=== PATIENT | male | born 1980 | race Caucasian/White ===

== ENCOUNTER 2016-09-18 01:05 | Emergency (ER) | payer OTHER ==
--- NOTE | 2016-09-18 04:48 | ED ---
Overdose HPI - General Chief Complaint: Overdose Stated Complaint: overdose Time Seen by Provider: 09/18/16 01:17 Source: EMS Mode of arrival: EMS Limitations: no limitations - Related Data Home Medications Medication Instructions Recorded Confirmed Venlafaxine HCl [Effexor XR] 75 mg PO DAILY 01/23/14 08/08/14 Previous Rx's Medication Instructions Recorded Ibuprofen [Motrin] 800 mg PO Q8HR PRN #30 tab 01/23/14 Penicillin V Potassium [Pen Vee K] 500 mg PO TID #40 tab 08/08/14 traMADol HCl [Ultram] 50 mg PO Q4H PRN #20 tab 08/08/14 Ibuprofen [Motrin] 800 mg PO Q8HR PRN #20 tab 05/04/15 Penicillin V Potassium [Pen Vee K] 500 mg PO QID #28 tab 05/04/15 Allergies Allergy/AdvReac Type Severity Reaction Status Date / Time codeine AdvReac Nausea Verified 09/18/16 01:14 doxycycline AdvReac Nausea & Verified 09/18/16 01:14 Vomiting Review of Systems ROS Statement: Those systems with pertinent positive or pertinent negative responses have been documented in the HPI. ROS Other: All systems not noted in ROS Statement are negative. Past Medical History Past Medical History: No Reported History History of Any Multi-Drug Resistant Organisms: None Reported Past Surgical History: No Surgical Hx Reported Past Psychological History: Anxiety Smoking Status: Current every day smoker Past Alcohol Use History: None Reported Past Drug Use History: Cocaine, Heroin General Exam Limitations: no limitations Course Vital Signs 09/18/16 09/18/16 01:09 03:16 Temperature 99.3 F 96.9 F L Pulse Rate 100 80 Respiratory 18 16 Rate Blood Pressure 132/81 109/68 O2 Sat by Pulse 94 L 96 Oximetry Disposition Clinical Impression: Poisoning by opiate or related narcotic Disposition: HOME SELF-CARE Condition: Fair Instructions: Opioid Overdose (ED) Referrals: None,Stated [Primary Care Provider] - 1-2 days
[2016-09-18 04:52] VITALS: BP 104/66; PULSE 79; RESP 18; TEMP 97.9
== END 2016-09-18 05:04 | disposition home or self-care (01) ==
LOC: EC 01:05
DX: T40.691A Poisoning by other narcotics, accidental (unintentional), initial encounter (principal); F41.9 Anxiety disorder, unspecified; F17.200 Nicotine dependence, unspecified, uncomplicated; Z88.1 Allergy status to other antibiotic agents; Z88.5 Allergy status to narcotic agent; Z79.899 Other long term (current) drug therapy
CPT/HCPCS: 99284

== ENCOUNTER 2021-09-17 18:12 | Emergency (ER) | payer OTHER ==
[2021-09-17 19:28] VITALS: RESP 22; TEMP 99.6
[2021-09-17] MEDS ORDERED: SULFAMETHOX-TMP 800-160MG 1 EACH TAB PO STA (19:52)
[2021-09-17] MEDS ORDERED: CEPHALEXIN 500 MG CAP PO STA (19:52)
--- NOTE | 2021-09-17 19:57 | ED ---
General Adult HPI - General Chief complaint: Skin/Abscess/Foreign Body Stated complaint: right foot infection Time Seen by Provider: 09/17/21 19:46 Source: patient, RN notes reviewed, old records reviewed Mode of arrival: ambulatory Limitations: no limitations - History of Present Illness Initial comments: 41-year-old male presents with pain and swelling in the medial aspect of his right foot. Patient admits to using IV fentanyl about one week ago and states that the infection began shortly after that. He denies fever. He states he's had multiple cutaneous infections in the past. He is currently in a methadone maintenance program and is abstaining from IV drug use. - Related Data Previous Rx's Medication Instructions Recorded Albuterol Sulfate [Proair Hfa] 1 - 2 puff INHALATION Q6HR PRN #1 01/01/17 inhaler Azithromycin [Zithromax Z-pack (6 0 mg PO DIRECTED #6 tab 01/01/17 tabs)] Cephalexin [Keflex] 500 mg PO QID 10 Days #40 cap 09/17/21 Sulfamethox-Tmp 800-160Mg [Bactrim 1 tab PO Q12HR #28 tab 09/17/21 DS 800-160 mg] Allergies Allergy/AdvReac Type Severity Reaction Status Date / Time codeine AdvReac Nausea Verified 09/17/21 19:28 doxycycline AdvReac Nausea & Verified 09/17/21 19:28 Vomiting Review of Systems ROS Statement: Those systems with pertinent positive or pertinent negative responses have been documented in the HPI. ROS Other: All systems not noted in ROS Statement are negative. Past Medical History Past Medical History: No Reported History Additional Past Medical History / Comment(s): Hep C, addiction History of Any Multi-Drug Resistant Organisms: None Reported Past Surgical History: No Surgical Hx Reported Past Psychological History: Anxiety, Depression Smoking Status: Current every day smoker Past Alcohol Use History: None Reported Past Drug Use History: Cocaine, Heroin General Exam Limitations: no limitations General appearance: alert, in no apparent distress Head exam: Present: atraumatic, normocephalic Eye exam: Present: normal appearance, PERRL ENT exam: Present: normal exam Neck exam: Present: normal inspection. Absent: tenderness, meningismus Respiratory exam: Absent: respiratory distress Cardiovascular Exam: Present: regular rate, normal rhythm GI/Abdominal exam: Absent: distended Extremities exam: Present: other (Right medial foot, there is a central fluctuant region with surrounding cellulitis which is the entire medial aspect of the foot and the distal ankle.) Course Vital Signs 09/17/21 19:24 Temperature 99.6 F Pulse Rate 85 Respiratory 22 Rate Blood Pressure 125/83 O2 Sat by Pulse 100 Oximetry Procedures - Incision & Drainage Consent Obtained: verbal consent Indication: Abscess Site: lower extremity I&D Cleaning Method: Chloroprep Sterile Field Used?: No Scalpel Used: #11 Needle Aspiration Performed?: No Irrigation Performed?: No I&D Drainage Obtained: Serous Culture Obtained?: No Patient Tolerated Procedure: well Medical Decision Making - Medical Decision Making 41-year-old male with abscess and cellulitis to the right medial foot. Patient otherwise well-appearing. He is currently undergoing treatment for opiate use. There was a small abscess with fluctuance center. I was able to drain this with an 11 blade scalpel. Only serous fluid came out, no purulence. The patient is started on Keflex and Bactrim in the emergency department. He should monitor his symptoms and follow with his primary care physician. Disposition Clinical Impression: Cellulitis, Abscess Disposition: HOME SELF-CARE Condition: Fair Instructions (If sedation given, give patient instructions): Abscess (ED), Cellulitis (ED) Prescriptions: Sulfamethox-Tmp 800-160Mg [Bactrim DS 800-160 mg] 1 tab PO Q12HR #28 tab Cephalexin [Keflex] 500 mg PO QID 10 Days #40 cap Is patient prescribed a controlled substance at d/c from ED?: No Referrals: None,Stated [Primary Care Provider] - 1-2 days Zack Randall MD [STAFF PHYSICIAN] - 1-2 days Time of Disposition: 19:55
[2021-09-17 20:07] VITALS: BP 129/90; PULSE 80
== END 2021-09-17 20:07 | disposition home or self-care (01) ==
LOC: EC 18:12
DX: L03.115 Cellulitis of right lower limb (principal); L02.91 Cutaneous abscess, unspecified; F17.200 Nicotine dependence, unspecified, uncomplicated; Z88.5 Allergy status to narcotic agent; Z88.1 Allergy status to other antibiotic agents
CPT/HCPCS: 10060; 99283

== ENCOUNTER 2024-02-01 15:05 | Observation (INO) | payer OTHER ==
--- NOTE | 2024-02-01 15:59 | ED ---
General Adult HPI - General Source: patient, RN notes reviewed Mode of arrival: ambulatory Limitations: no limitations <Jaime Abel - Last Filed: 02/01/24 16:59> - General Source: patient, RN notes reviewed, old records reviewed Mode of arrival: ambulatory Limitations: no limitations - History of Present Illness -: days(s) Consistency: constant Improves with: none Worsens with: none Associated Symptoms: loss of appetite, nausea/vomiting, weakness Treatments Prior to Arrival: none <Krishna Dominguez - Last Filed: 02/08/24 17:36> - General Stated complaint: Fever Time Seen by Provider: 02/01/24 15:25 - History of Present Illness Initial comments: 43-year-old male presents emergency department with chief complaint of leg infections patient states he has been having bodyaches, fevers chills and night sweats. Patient states he has sores and redness and swelling in his left upper leg by his knee. Patient does admit that he has hepatitis C. States that he started injecting throughout his legs secondary to losing access of injection sites. Patient states he uses fentanyl. Patient denies any abdominal pain denies back pain denies chest pain shortness of breath (Jaime Abel) This is a 43-year-old male with concern for infectious etiology with history of hepatitis C and recent drug abuse (Krishna Dominguez) - Related Data Previous Rx's Medication Instructions Recorded Sulfamethoxazole/Trimethoprim 2 each PO BID #28 tablet 02/03/24 [Bactrim DS 800-160 mg] Allergies Allergy/AdvReac Type Severity Reaction Status Date / Time codeine AdvReac Nausea Verified 02/02/24 05:28 doxycycline AdvReac Nausea & Verified 02/02/24 05:28 Vomiting Review of Systems ROS Other: All systems not noted in ROS Statement are negative. <Jaime Abel - Last Filed: 02/01/24 16:59> ROS Other: All systems not noted in ROS Statement are negative. <Krishna Dominguez - Last Filed: 02/08/24 17:36> ROS Statement: Those systems with pertinent positive or pertinent negative responses have been documented in the HPI. Past Medical History Past Medical History: No Reported History Additional Past Medical History / Comment(s): Hep C, addiction History of Any Multi-Drug Resistant Organisms: None Reported Past Surgical History: No Surgical Hx Reported Past Psychological History: Anxiety, Depression Smoking Status: Current every day smoker Past Alcohol Use History: None Reported Past Drug Use History: Cocaine, Heroin, IV Drug Use, Opiates <Jaime Abel - Last Filed: 02/01/24 16:59> General Exam Limitations: no limitations General appearance: alert, in no apparent distress Head exam: Present: atraumatic, normocephalic, normal inspection Eye exam: Present: normal appearance, PERRL, EOMI. Absent: scleral icterus, conjunctival injection, periorbital swelling Respiratory exam: Present: normal lung sounds bilaterally. Absent: respiratory distress, wheezes, rales, rhonchi, stridor Cardiovascular Exam: Present: regular rate, normal rhythm, normal heart sounds. Absent: systolic murmur, diastolic murmur, rubs, gallop, clicks Extremities exam: Present: other (Bilateral legs multiple raised erythematous firm nodular areas with central puncture wound noted) Skin exam: Present: warm, dry, intact, normal color. Absent: rash <PageJaime Moore - Last Filed: 02/01/24 16:59> General appearance: alert, in no apparent distress Head exam: Present: atraumatic, normocephalic, normal inspection Eye exam: Present: normal appearance, PERRL, EOMI. Absent: scleral icterus, conjunctival injection, periorbital swelling ENT exam: Present: normal exam, mucous membranes moist Neck exam: Present: normal inspection. Absent: tenderness, meningismus, lymphadenopathy Respiratory exam: Present: normal lung sounds bilaterally. Absent: respiratory distress, wheezes, rales, rhonchi, stridor Cardiovascular Exam: Present: regular rate, normal rhythm, normal heart sounds. Absent: systolic murmur, diastolic murmur, rubs, gallop, clicks GI/Abdominal exam: Present: soft, normal bowel sounds. Absent: distended, tenderness, guarding, rebound, rigid Extremities exam: Present: normal inspection, full ROM, normal capillary refill. Absent: tenderness, pedal edema, joint swelling, calf tenderness Back exam: Present: normal inspection Neurological exam: Present: alert, oriented X3, CN II-XII intact Psychiatric exam: Present: normal affect, normal mood Skin exam: Present: warm, dry, intact, normal color. Absent: rash <Krishna Dominguez - Last Filed: 02/08/24 17:36> Course <Krishna Dominguez - Last Filed: 02/08/24 17:36> Vital Signs 02/01/24 02/01/24 02/01/24 15:54 18:14 20:00 Temperature 98.1 F 98.9 F Pulse Rate 105 H 83 75 Respiratory 20 18 16 Rate Blood Pressure 138/88 148/81 173/86 O2 Sat by Pulse 97 100 99 Oximetry 02/01/24 02/02/24 02/02/24 22:00 01:05 06:00 Temperature Pulse Rate 88 88 88 Respiratory 16 16 16 Rate Blood Pressure 130/89 130/79 130/65 O2 Sat by Pulse 100 97 96 Oximetry 02/02/24 02/02/24 02/02/24 08:00 10:00 11:00 Temperature Pulse Rate 78 86 74 Respiratory 16 20 20 Rate Blood Pressure 130/65 120/68 118/96 O2 Sat by Pulse 98 98 98 Oximetry 02/02/24 02/02/24 02/02/24 14:00 15:00 16:00 Temperature Pulse Rate 79 85 78 Respiratory 20 16 20 Rate Blood Pressure 117/67 140/60 140/79 O2 Sat by Pulse 98 98 98 Oximetry 02/02/24 02/02/24 18:00 18:28 Temperature Pulse Rate 75 75 Respiratory 20 16 Rate Blood Pressure 146/90 116/80 O2 Sat by Pulse 97 98 Oximetry - Reevaluation(s) Reevaluation #1: 02/01/24 18:08 Medical records reviewed (Krishna Dominguez) Reevaluation #2: 02/01/24 18:08 Patient symptoms improved (Krishna Dominguez) Reevaluation #3: 02/01/24 18:09 Patient informed of results and questions answered (Krishna Dominguez) Reevaluation #4: 02/01/24 18:09 Was pt. sent in by a medical professional or institution (, PA, [employer]P [employer], urgent care, hospital, or correction...) When possible be specific @ -no Did you speak to anyone other than the patient for history (EMS, parent, family, police, friend...)? What history was obtained from this source @ -no Did you review nursing and triage notes (agree or disagree)? Why? @ -agree Are old charts reviewed (outside hosp., previous admission, EMS record, old EKG, old radiological studies, urgent care reports/EKG's, correction records)? Report findings @ -yes Differential Diagnosis (chest pain, altered mental status, abdominal pain women, abdominal pain men, vaginal bleeding, weakness, fever, dyspnea, syncope, headache, dizziness, GI bleed, back pain, seizure, CVA, palpatations, mental health, musculoskeletal)? @ -prior EKG interpreted by me (3pts min.). @ -yes X-rays interpreted by me (1pt min.). @ -yes negative for acute disease CT interpreted by me (1pt min.). @ -no U/S interpreted by me (1pt. min.). @ -no What testing was considered but not performed or refused? (CT, X-rays, U/S, labs)? Why? @ -none What meds were considered but not given or refused? Why? @ -none Did you discuss the management of the patient with other professionals (professionals i.e. , PA, [employer], lab, RT, psych nurse, social media sr strategy manager, manager of investigations, teacher, commanding officer motorized squad, case supervisor)? Give summary @ -no Was smoking cessation discussed for >3mins.? @ -no Was critical care preformed (if so, how long)? @ -no Were there social determinants of health that impacted care today? How? (Homelessness, low income, unemployed, alcoholism, drug addiction, transportation, low edu. Level, literacy, decrease access to med. care, detention, rehab)? @ -none Was there de-escalation of care discussed even if they declined (Discuss DNR or withdrawal of care, Hospice)? DNR status @ -no What co-morbidities impacted this encounter? (DM, HTN, Smoking, COPD, CAD, Cancer, CVA, ARF, Chemo, Hep., AIDS, mental health diagnosis, sleep apnea, morbid obesity)? @ -none Was patient admitted / discharged? Hospital course, mention meds given and route, prescriptions, significant lab abnormalities, going to OR and other pertinent info. @ - 43 male to be admitted for rule out bacterial cause of fever bacterial endocarditis bacteremia Admitted Undiagnosed new problem with uncertain prognosis? @ -no Drug Therapy requiring intensive monitoring for toxicity (Heparin, Nitro, Insulin, Cardizem)? @ -no Were any procedures done? @ -no Diagnosis/symptom? @ -Chest pain history of IVDA Acute, or Chronic, or Acute on Chronic? @ -Acute Uncomplicated (without systemic symptoms) or Complicated (systemic symptoms)? @ -Complicated Side effects of treatment? @ -no Exacerbation, Progression, or Severe Exacerbation? @ -exacerbation Poses a threat to life or bodily function? How? (Chest pain, USA, VT, pneumonia, PE, COPD, DKA, ARF, appy, cholecystitis, CVA, Diverticulitis, Homicidal, Suicidal, threat to staff... and all critical care pts) @ -yes chest pain history of IVDA (Krishna Dominguez) Reevaluation #5: Differential Fever: Pneumonia, viral URI, endocarditis, myocarditis, pericarditis, otitis, sinusitis, peritonsillar Abscess, retropharyngeal Abscess, epiglottitis, peritonitis, appendicitis, Fina cystitis, diverticulitis, hepatitis, colitis, UTI, PID, TOA, pyelonephritis, prostatitis, epididymitis, meningitis, encephalitis, pulmonary embolism, CVA, thyroid storm, pancreatitis, adrenal crisis, cavernous sinus thrombosis, this is not meant to be an all-inclusive list. (Krishna Dominguez) - Consultations Consultation #1: Spoke with [facility] who agrees to admit this patient (Krishna Dominguez) EKG Findings - EKG Comments: EKG Findings:: EKG performed at 1649 sinus rhythm with sinus arrhythmia rate of 84 IN 150 QRS 105 QT/QTc 354/395 - EKG Results: EKG: interpreted by GORDON <Jaime Abel - Last Filed: 02/01/24 16:59> - EKG Results: EKG: interpreted by GORDON <Krishna Dominguez - Last Filed: 02/08/24 17:36> Medical Decision Making - Lab Data Result diagrams: 02/01/24 16:51 <Jaime Abel - Last Filed: 02/01/24 16:59> - Lab Data Result diagrams: 02/03/24 04:19 02/03/24 10:08 - EKG Data -: EKG Interpreted by Ak - Radiology Data Radiology results: report reviewed (Chest x-ray negative for acute disease), image reviewed <Krishna Dominguez - Last Filed: 02/08/24 17:36> - Medical Decision Making 43 male to be admitted for rule out bacterial cause of fever bacterial endocarditis bacteremia (Krishna Dominguez) - Lab Data Lab Results 02/01/24 02/01/24 02/01/24 Range/Units 16:51 16:51 16:51 WBC 15.2 H (3.8-10.6) k/uL RBC 5.07 (4.30-5.90) m/uL Hgb 15.2 (13.0-17.5) gm/dL Hct 45.1 (39.0-53.0) % MCV 88.9 (80.0-100.0) fL MCH 29.9 (25.0-35.0) pg MCHC 33.6 (31.0-37.0) g/dL RDW 13.4 (11.5-15.5) % Plt Count 346 (150-450) k/uL MPV 6.9 Neutrophils % 76 % Lymphocytes % 15 % Monocytes % 5 % Eosinophils % 1 % Basophils % 1 % Neutrophils # 11.5 H (1.3-7.7) k/uL Lymphocytes # 2.3 (1.0-4.8) k/uL Monocytes # 0.8 (0-1.0) k/uL Eosinophils # 0.2 (0-0.7) k/uL Basophils # 0.1 (0-0.2) k/uL ESR 46 H (0-15) mm/Hr Sodium 141 (137-145) mmol/L Potassium 3.0 L (3.5-5.1) mmol/L Chloride 105 (98-107) mmol/L Carbon Dioxide 28 (22-30) mmol/L Anion Gap 8 mmol/L BUN 8 L (9-20) mg/dL Creatinine 0.79 (0.66-1.25) mg/dL Est GFR (CKD-EPI)AfAm >90 (>60 ml/min/1.73 sqM) Est GFR (CKD-EPI)NonAf >90 (>60 ml/min/1.73 sqM) Glucose 145 H (74-99) mg/dL Plasma Lactic Acid Molina 1.8 (0.7-2.0) mmol/L Calcium 9.5 (8.4-10.2) mg/dL Phosphorus (2.5-4.5) mg/dL Magnesium (1.6-2.3) mg/dL Total Bilirubin 0.6 (0.2-1.3) mg/dL AST 48 (17-59) U/L ALT 71 H (4-49) U/L Alkaline Phosphatase 132 H (38-126) U/L Troponin I (0.000-0.034) ng/mL C-Reactive Protein 13.7 H (<1.0) mg/dL Total Protein 8.8 H (6.3-8.2) g/dL Albumin 4.6 (3.5-5.0) g/dL 02/01/24 02/01/24 Range/Units 16:51 16:51 WBC (3.8-10.6) k/uL RBC (4.30-5.90) m/uL Hgb (13.0-17.5) gm/dL Hct (39.0-53.0) % MCV (80.0-100.0) fL MCH (25.0-35.0) pg MCHC (31.0-37.0) g/dL RDW (11.5-15.5) % Plt Count (150-450) k/uL MPV Neutrophils % % Lymphocytes % % Monocytes % % Eosinophils % % Basophils % % Neutrophils # (1.3-7.7) k/uL Lymphocytes # (1.0-4.8) k/uL Monocytes # (0-1.0) k/uL Eosinophils # (0-0.7) k/uL Basophils # (0-0.2) k/uL ESR (0-15) mm/Hr Sodium (137-145) mmol/L Potassium (3.5-5.1) mmol/L Chloride (98-107) mmol/L Carbon Dioxide (22-30) mmol/L Anion Gap mmol/L BUN (9-20) mg/dL Creatinine (0.66-1.25) mg/dL Est GFR (CKD-EPI)AfAm (>60 ml/min/1.73 sqM) Est GFR (CKD-EPI)NonAf (>60 ml/min/1.73 sqM) Glucose (74-99) mg/dL Plasma Lactic Acid Molina (0.7-2.0) mmol/L Calcium (8.4-10.2) mg/dL Phosphorus 3.6 (2.5-4.5) mg/dL Magnesium 2.0 (1.6-2.3) mg/dL Total Bilirubin (0.2-1.3) mg/dL AST (17-59) U/L ALT (4-49) U/L Alkaline Phosphatase (38-126) U/L Troponin I <0.012 (0.000-0.034) ng/mL C-Reactive Protein (<1.0) mg/dL Total Protein (6.3-8.2) g/dL Albumin (3.5-5.0) g/dL Disposition <Jaime Abel - Last Filed: 02/01/24 16:59> Is patient prescribed a controlled substance at d/c from ED?: No Time of Disposition: 18:00 <Krishna Dominguez - Last Filed: 02/08/24 17:36> Clinical Impression: Fever, Leukocytosis, IV drug abuse Disposition: ADMITTED IP TO THIS HOSP Condition: Undetermined
[2024-02-01 16:58] LABS: Basophils # (A) 0.1 k/uL (0-0.2); Basophils % (A) 1 %; Eosinophils # (A) 0.2 k/uL (0-0.7); Eosinophils % (A) 1 %; HCT 45.1 % (39.0-53.0); HGB 15.2 gm/dL (13.0-17.5); Lymphocytes # (A) 2.3 k/uL (1.0-4.8); Lymphocytes % (A) 15 %; MCH 29.9 pg (25.0-35.0); MCHC 33.6 g/dL (31.0-37.0); MCV 88.9 fL (80.0-100.0); Mean Platelet Volume 6.9; Monocytes # (A) 0.8 k/uL (0-1.0); Monocytes % (A) 5 %; Neutrophils # (A) 11.5 k/uL (1.3-7.7); Neutrophils % (A) 76 %; Platelet Count 346 k/uL (150-450); RBC 5.07 m/uL (4.30-5.90); RDW 13.4 % (11.5-15.5); WBC 15.2 k/uL (3.8-10.6)
[2024-02-01 17:09] LABS: ALT 71 U/L (4-49); AST 48 U/L (17-59); African American GFR (CKD) >90 (>60 ml/min/1.73 sqM); Albumin 4.6 g/dL (3.5-5.0); Alkaline Phosphatase 132 U/L (38-126); Anion Gap 8 mmol/L; Blood Urea Nitrogen 8 mg/dL (9-20); Calcium 9.5 mg/dL (8.4-10.2); Carbon Dioxide 28 mmol/L (22-30); Chloride 105 mmol/L (98-107); Glucose 145 mg/dL (74-99); Non-African American GFR(CKD) >90 (>60 ml/min/1.73 sqM); Sodium 141 mmol/L (137-145); Total Bilirubin 0.6 mg/dL (0.2-1.3); Total Protein 8.8 g/dL (6.3-8.2)
[2024-02-01 17:24] LABS: C Reactive Protein 13.7 mg/dL (<1.0)
[2024-02-01] MEDS ORDERED: VANCOMYCIN IV PER PHARMACY 1 EACH MISC MISCELLANE PRN (17:53)
[2024-02-01] MEDS ORDERED: NALOXONE 0.4 MG/ML 1 ML VIAL IV PRN (18:06)
[2024-02-01] MEDS: PANTOPRAZOLE 40 MG/10 ML VIAL IV SCH (18:21)
[2024-02-01] MEDS: POTASSIUM BICARBONATE/CIT AC 20 MEQ TABLET.EFF PO STA (18:27)
[2024-02-01 18:28] LABS: Phosphorus 3.6 mg/dL (2.5-4.5)
[2024-02-01] MEDS: VANCOMYCIN 1,500 MG in SODIUM CHLORIDE 0.9% 500 ML 500 ML IVPB STA (18:56)
--- NOTE | 2024-02-01 19:58 | XR ---
EXAMINATION TYPE: XR chest 2V DATE OF EXAM: 02/01/2024 7:55 PM COMPARISON: Chest 01/01/2017. CLINICAL INDICATION: Male, 43 years old with history of pain; [facility] TECHNIQUE: XR chest 2V Frontal and lateral views of the chest. FINDINGS: Lungs/Pleura: Low lung volumes, which likely accentuates the cardiac silhouette and pulmonary vascula ture. There is no evidence of pleural effusion, focal consolidation, or pneumothorax. Pulmonary vascularity: Unremarkable. Heart/mediastinum: Cardiomediastinal silhouette is unremarkable. Musculoskeletal: No acute osseous pathology. Other findings: None IMPRESSION: No acute cardiopulmonary disease/process. [facility], , 02/01/2024 7:56 PM
[2024-02-01] MEDS: MORPHINE SULFATE 4 MG/ML SYRINGE IV PRN (20:26)
[2024-02-01] MEDS: POTASSIUM BICARBONATE/CIT AC 20 MEQ TABLET.EFF PO ONE (20:59)
[2024-02-01 22:45] LABS: Erythrocyte Sedimentation Rate 46 mm/Hr (0-15)
[2024-02-02] MEDS: VANCOMYCIN 1,500 MG in SODIUM CHLORIDE 0.9% 500 ML 500 ML IVPB SCH (04:35)
[2024-02-02 10:12] LABS: Basophils # (A) 0.09 X 10*3/uL (0.00-0.10); Basophils % (A) 0.7 %; Eosinophils # (A) 0.23 X 10*3/uL (0.04-0.35); Eosinophils % (A) 1.8 %; HCT 39.1 % (39.6-50.0); HGB 12.7 g/dL (13.0-17.0); Lymphocytes # (A) 3.43 X 10*3/uL (0.90-5.00); Lymphocytes % (A) 26.6 %; MCH 29.5 pg (27.0-32.0); MCHC 32.5 g/dL (32.0-37.0); MCV 90.7 FL (80.0-97.0); Mean Platelet Volume 9.9 FL (9.5-12.2); Monocytes # (A) 1.24 X 10*3/uL (0.20-1.00); Monocytes % (A) 9.6 %; NRBC Per 100 WBC 0 X 10*3/uL (0.00-0.01); Neutrophils # (A) 7.87 X 10*3/uL (1.80-7.70); Neutrophils % (A) 60.9 %; Platelet Count 324 X 10*3/uL (140-440); RBC 4.31 X 10*6/uL (4.40-5.60); RDW 13.4 % (11.5-14.5); WBC 12.91 X 10*3/uL (4.50-10.00)
[2024-02-02 10:23] LABS: ALT 52 U/L (10-49); AST 34 U/L (14-35); Albumin 3.8 g/dL (3.8-4.9); Albumin/Globulin Ratio 1.23 Ratio (1.60-3.17); Alkaline Phosphatase 106 U/L (41-126); BUN/Creat Ratio 9.57 Ratio (12.00-20.00); Blood Urea Nitrogen 6.7 mg/dL (9.0-27.0); Calcium 8.9 mg/dL (8.7-10.3); Carbon Dioxide 26.1 mmol/L (21.6-31.8); Chloride 105 mmol/L (96-109); Globulin 3.1 g/dL (1.6-3.3); Glucose 127 mg/dL (70-110); Magnesium 2.1 mg/dL (1.5-2.4); Phosphorus 3.4 mg/dL (2.4-5.1); Sodium 141 mmol/L (135-145); Total Bilirubin 0.3 mg/dL (0.3-1.2); Total Protein 6.9 g/dL (6.2-8.2)
[2024-02-02] MEDS: ENOXAPARIN 40 MG/0.4 ML SYRINGE SQ SCH (11:13)
--- NOTE | 2024-02-02 12:40 | CA ---
Transthoracic Echo Report Name: Mir Castrejon Age: 43 Gender: M : 1980 Exam Date: 02/02/2024 07:42 Exam Location: [facility] Ht (in): 73 Wt (lb): 212 Ordering Physician: Krishna Dominguez DO Attending/Referring Phys: [id number], Angelica [employer] Inspector Belen Butcher RDCS Procedure CPT: Indications: Endocarditis Cardiac Hx: Technical Quality: Good Contrast 1: Total Dose (mL): Contrast 2: Total Dose (mL): MEASUREMENTS (Male / Female) Normal Values 2D ECHO LV Diastolic Diameter PLAX 4.3 cm 4.2 - 5.9 / 3.9 - 5.3 cm LV Systolic Diameter PLAX 2.5 cm IVS Diastolic Thickness 1.2 cm 0.6 - 1.0 / 0.6 - 0.9 cm LVPW Diastolic Thickness 0.8 cm 0.6 - 1.0 / 0.6 - 0.9 cm LV Relative Wall Thickness 0.5 RV Internal Dim ED PLAX 2.6 cm LVOT Diameter 2.1 cm LA Systolic Diameter LX 3.7 cm 3.0 - 4.0 / 2.7 - 3.8 cm LV Diastolic Volume MOD BP 70.1 cm??? 67 - 155 / 56 - 104 cm??? LV Systolic Volume MOD BP 21.8 cm??? - / 19 - 49 cm??? LV Ejection Fraction MOD BP 68.9 % >= 55 % LV Cardiac Index MOD BP 1918.2 cm???/min???m??? LV Diastolic Volume MOD 4C 80.8 cm??? LV Systolic Volume MOD 4C 23.1 cm??? LV Ejection Fraction MOD 4C 71.4 % LV Cardiac Index MOD 4C 2288.9 cm???/min???m??? LV Diastolic Length 4C 7.6 cm LV Systolic Length 4C 5.7 cm LV Diastolic Volume MOD 2C 60.8 cm??? LV Systolic Volume MOD 2C 19.4 cm??? LV Ejection Fraction MOD 2C 68.1 % LV Cardiac Index MOD 2C 1643.3 cm???/min???m??? LV Diastolic Length 2C 7.7 cm LV Systolic Length 2C 6.1 cm LA Volume 67.6 cm??? 18 - 58 / 22 - 52 cm??? LA Volume Index 30.1 cm???/m??? 16 - 28 cm???/m??? M-MODE Aortic Root Diameter MM 2.8 cm LA Systolic Diameter MM 3.8 cm LA Ao Ratio MM 1.4 AV Cusp Separation MM 2.0 cm DOPPLER MV Area PHT 2.5 cm??? Mitral E Point Velocity 123.1 cm/s Mitral A Point Velocity 80.6 cm/s Mitral E to A Ratio 1.5 MV Deceleration Time 307.2 ms TR Peak Velocity 285.0 cm/s TR Peak Gradient 32.5 mmHg FINDINGS Left Ventricle Left ventricular ejection fraction is estimated at 60-65%. Mildly increased septal wall thickness. Normal left ventricular systolic function with no obvious regional wall motion abnormalities. Left ventricular cavity size normal. Right Ventricle Normal right ventricular size and function. Right ventricular systolic pressure within normal limits. Right Atrium Normal right atrial size. Left Atrium Mildly increased left atrial volume. Mitral Valve Structurally normal mitral valve. Trace mitral regurgitation. No mitral stenosis. Aortic Valve Trileaflet aortic valve. No aortic valve stenosis or regurgitation. Tricuspid Valve Structurally normal tricuspid valve. No tricuspid stenosis. No tricuspid regurgitation. Pulmonic Valve Structurally normal pulmonic valve. Trace pulmonic regurgitation. No pulmonic stenosis. Pericardium No pericardial or pleural effusion. Aorta Normal size aortic root and proximal ascending aorta. CONCLUSIONS Left ventricular ejection fraction 60-65% Mildly increased left ventricular wall thickness Trace mitral regurgitation No tricuspid regurgitation No evidence of vegetation. Consider KELLY if clinically indicated. Previewed by: Dr. Heber Siu DO (Electronically Signed) Final Date: 02 February 2024 12:39
--- NOTE | 2024-02-02 13:14 | P.HPIM ---
History of Present Illness H&P Date: 02/02/24 History of present illness; Patient is a 43-year-old male with history of IV drug use including fentanyl and heroin, hepatitis C who presents with intermittent fever. Patient states he has had several days of fever and chills. He also states he has had some shortness of breath and bodyaches. He has no other pain and symptoms are non positional dependent. Continues to use IV fentanyl and is concerned about endocarditis. This morning he states he is feeling better and has absence of fever, chills, weight loss, chest pain, palpitations, diaphoresis, dyspnea, cough, nausea, vomiting, constipation, diarrhea, abdominal pain, weakness, myalgia, dizziness, headache, and dysuria. EKG done in the ER independently interpreted showed sinus arrhythmia heart rate of 84, no ST segment elevation or depression seen, no T-wave inversions seen. Chest x-ray done independently interpreted in the ER showed no acute process Spoke with the ER physician, patient admission was accepted by internal medicine service. REVIEW OF SYSTEMS: Pertinent positives and negatives noted in HPI. PHYSICAL EXAMINATION: Vitals reviewed GENERAL: No acute distress. Well developed, well nourished. HEENT: Pupils are round and equally reacting to light. EOMI. No scleral icterus. Normocephalic, atraumatic. No pharyngeal erythema. No thyromegaly. CARDIOVASCULAR: S1 and S2 present. No murmurs, rubs, or gallops. PULMONARY: Chest is clear to auscultation, no wheezing, rhonchi, or crackles. ABDOMEN: Soft, nontender, nondistended, normoactive bowel sounds. No palpable organomegaly. MUSCULOSKELETAL: No apparent joint swelling and deformities. EXTREMITIES: No apparent cyanosis, clubbing, or pedal edema. NEUROLOGICAL: The patient is alert and oriented x3, Gross neurological examination did not reveal any focal deficits. 5/5 Strength bilateral UE and LE SKIN: Multiple round erythematous lesions in lower extremities Assessment and plan Patient is a 43-year-old male with history of IV drug use including fentanyl and heroin, hepatitis C who presents with new intermittent fever. # Leukocytosis, likely reactive #Dyspnea, infective endocarditis rule out Currently afebrile WBC 15.2 => 12.91 is elevated ESR 46, CRP 13.7 Troponin negative Echo EF 60 to 65%, no evidence of vegetation Blood culture pending Continue vancomycin IVPB 1500 mg every 8 hours Continue ceftriaxone IVPB 2 g every 24 hours ID consulted Monitor CBC #Hypokalemia, resolved Initially 3.0 => 4.0 Given 80 mEq potassium chloride Monitor CMP #Transaminitis secondary to hepatitis C Initial ALT 71 => 52 is elevated Has referral for GI, Dr. Watters # IV drug use - Currently uses fentanyl Counseled patient on drug cessation and risk associated with IV drug use including endocarditis - Consult social work F: P.o. E: Replete as needed N: Regular diet DVT ppx: Subq Lovenox 40 meq daily Code status: Full code Anticipated discharge place: Home Anticipated discharge time: 1 to 2 days Dictation was produced using [employer] dictation software. Please excuse any grammatical, word or spelling errors. Dr. Natalie MD I have performed a history and physical examination and medical decision making of this patient, discussed the same with the the resident, and agree with the assessment and plan as written. I performed brief physical exam. Past Medical History Past Medical History: No Reported History Additional Past Medical History / Comment(s): Hep C, addiction History of Any Multi-Drug Resistant Organisms: None Reported Past Surgical History: No Surgical Hx Reported Past Psychological History: Anxiety, Depression Smoking Status: Current every day smoker Past Alcohol Use History: None Reported Past Drug Use History: Cocaine, Heroin, IV Drug Use, Opiates Medications and Allergies Home Medications Medication Instructions Recorded Confirmed Type No Known Home Medications 02/02/24 02/02/24 History Allergies Allergy/AdvReac Type Severity Reaction Status Date / Time codeine AdvReac Nausea Verified 02/02/24 05:28 doxycycline AdvReac Nausea & Verified 02/02/24 05:28 Vomiting Physical Exam Vitals: Vital Signs Temp Pulse Resp BP Pulse Ox 02/02/24 11:00 74 20 118/96 98 02/02/24 10:00 86 20 120/68 98 02/02/24 08:00 78 16 130/65 98 02/02/24 06:00 88 16 130/65 96 02/02/24 01:05 88 16 130/79 97 02/01/24 22:00 88 16 130/89 100 02/01/24 20:00 75 16 173/86 99 02/01/24 18:14 98.9 F 83 18 148/81 100 02/01/24 15:54 98.1 F 105 H 20 138/88 97 Intake and Output 02/01/24 02/02/24 02/02/24 22:59 06:59 14:59 Other: Weight 96.162 kg Results CBC & Chem 7: 02/03/24 04:19 02/03/24 04:19 Labs: Abnormal Lab Results - Last 24 Hours (Table) 02/01/24 02/01/24 02/02/24 Range/Units 16:51 16:51 06:29 WBC 15.2 H 12.91 H (3.8-10.6) k/uL RBC 4.31 L (4.40-5.60) X 10*6/uL Hgb 12.7 L (13.0-17.0) g/dL Hct 39.1 L (39.6-50.0) % Immature Gran # 0.05 H (0.00-0.04) X 10*3/uL Neutrophils # 11.5 H 7.87 H (1.3-7.7) k/uL Monocytes # 1.24 H (0.20-1.00) X 10*3/uL ESR 46 H (0-15) mm/Hr Potassium 3.0 L (3.5-5.1) mmol/L BUN 8 L (9-20) mg/dL BUN/Creatinine Ratio (12.00-20.00) Ratio Glucose 145 H (74-99) mg/dL ALT 71 H (4-49) U/L Alkaline Phosphatase 132 H (38-126) U/L C-Reactive Protein 13.7 H (<1.0) mg/dL Total Protein 8.8 H (6.3-8.2) g/dL Albumin/Globulin Ratio (1.60-3.17) Ratio 02/02/24 Range/Units 06:29 WBC (3.8-10.6) k/uL RBC (4.40-5.60) X 10*6/uL Hgb (13.0-17.0) g/dL Hct (39.6-50.0) % Immature Gran # (0.00-0.04) X 10*3/uL Neutrophils # (1.3-7.7) k/uL Monocytes # (0.20-1.00) X 10*3/uL ESR (0-15) mm/Hr Potassium (3.5-5.1) mmol/L BUN 6.7 L (9-20) mg/dL BUN/Creatinine Ratio 9.57 L (12.00-20.00) Ratio Glucose 127 H (74-99) mg/dL ALT 52 H (4-49) U/L Alkaline Phosphatase (38-126) U/L C-Reactive Protein (<1.0) mg/dL Total Protein (6.3-8.2) g/dL Albumin/Globulin Ratio 1.23 L (1.60-3.17) Ratio
[2024-02-03 05:45] LABS: Basophils # (A) 0.1 k/uL (0-0.2); Basophils % (A) 1 %; Eosinophils # (A) 0.3 k/uL (0-0.7); Eosinophils % (A) 3 %; HCT 40.3 % (39.0-53.0); HGB 13.5 gm/dL (13.0-17.5); Lymphocytes # (A) 2.9 k/uL (1.0-4.8); Lymphocytes % (A) 29 %; MCH 30.1 pg (25.0-35.0); MCHC 33.4 g/dL (31.0-37.0); MCV 90.2 fL (80.0-100.0); Mean Platelet Volume 8.2; Monocytes # (A) 0.6 k/uL (0-1.0); Monocytes % (A) 5 %; Neutrophils # (A) 6.2 k/uL (1.3-7.7); Neutrophils % (A) 61 %; Platelet Count 299 k/uL (150-450); RBC 4.47 m/uL (4.30-5.90); RDW 13.4 % (11.5-15.5); WBC 10.1 k/uL (3.8-10.6)
[2024-02-03 05:57] LABS: ALT 50 U/L (4-49); AST 37 U/L (17-59); African American GFR (CKD) >90 (>60 ml/min/1.73 sqM); Albumin 3.8 g/dL (3.5-5.0); Albumin/Globulin Ratio 1.1; Alkaline Phosphatase 105 U/L (38-126); Anion Gap 6 mmol/L; Blood Urea Nitrogen 7 mg/dL (9-20); Calcium 9.2 mg/dL (8.4-10.2); Carbon Dioxide 25 mmol/L (22-30); Chloride 109 mmol/L (98-107); Globulin 3.4 g/dL; Glucose 92 mg/dL (74-99); Non-African American GFR(CKD) >90 (>60 ml/min/1.73 sqM); Potassium 4.2 mmol/L (3.5-5.1); Sodium 140 mmol/L (137-145); Total Bilirubin 0.6 mg/dL (0.2-1.3); Total Protein 7.2 g/dL (6.3-8.2)
[2024-02-03 07:15] VITALS: BP 151/81; PULSE 85; RESP 16; TEMP 98.6
--- NOTE | 2024-02-03 07:21 | P.CONS ---
History of Present Illness - Reason for Consult Consult date: 02/02/24 Endocarditis Requesting physician: Krishna Dominguez - Chief Complaint Bilateral lower extremity swelling and redness x days - History of Present Illness Patient is a 43-year-old male with a past medical history significant for IV drug use hepatitis C anxiety depression presenting to the hospital concerning for generalized bodyaches fever chills and night sweats symptom has been going on for the last few days also complaining of increasing swelling and redness to the bilateral lower extremity as the patient has been using them to inject pain is mostly dull aching to sharp moderate intense without any radiation with associated swelling and redness however did not have any open wound or any drainage the patient started having some palpitation and shortness of breath for the patient presented to hospital on arrival to the ER the patient was afebrile and no fever have been called subsequently patient was not tachycardic hypotensive or hypoxic patient did have white count of 15.2 with a left shift creatinine 0.7 and electrolyte has been normal liver enzymes ALT elevated CRP was 13.7 influenza RSV COVID testing negative blood cultures obtained which are currently pending patient did have a chest x-ray no acute cardiopulmonary disease process patient also have an echocardiogram with no evidence of any vegetation patient was admitted to hospital concerning for endocarditis started on vancomycin infectious disease was consulted for further management of antibiotic therapy Review of Systems Positive point and negatives has been mentioned in the HPI, complete review of systems was performed and all other systems are negative Past Medical History Past Medical History: No Reported History Additional Past Medical History / Comment(s): Hep C, addiction History of Any Multi-Drug Resistant Organisms: None Reported Past Surgical History: No Surgical Hx Reported Past Psychological History: Anxiety, Depression Smoking Status: Current every day smoker Past Alcohol Use History: None Reported Past Drug Use History: Cocaine, Heroin, IV Drug Use, Opiates Medications and Allergies Home Medications Medication Instructions Recorded Confirmed Type No Known Home Medications 02/02/24 02/02/24 History Allergies Allergy/AdvReac Type Severity Reaction Status Date / Time codeine AdvReac Nausea Verified 02/02/24 05:28 doxycycline AdvReac Nausea & Verified 02/02/24 05:28 Vomiting Physical Exam Vitals: Vital Signs Temp Pulse Resp BP Pulse Ox 02/02/24 10:00 86 20 120/68 98 02/02/24 08:00 78 16 130/65 98 02/02/24 06:00 88 16 130/65 96 02/02/24 01:05 88 16 130/79 97 02/01/24 22:00 88 16 130/89 100 02/01/24 20:00 75 16 173/86 99 02/01/24 18:14 98.9 F 83 18 148/81 100 02/01/24 15:54 98.1 F 105 H 20 138/88 97 Intake and Output 02/01/24 02/02/24 02/02/24 22:59 06:59 14:59 Other: Weight 96.162 kg GENERAL DESCRIPTION: Middle-aged male lying in bed, no distress. No tachypnea or accessory muscle of respiration use. HEENT: Shows Pallor , no scleral icterus. Oral mucous membrane is dry. No pharyngeal erythema or thrush NECK: Trachea central, no thyromegaly. LUNGS: Unlabored breathing. Clear to auscultation anteriorly. No wheeze or crackle. HEART: S1, S2, regular rate and rhythm. No loud murmur ABDOMEN: Soft, no tenderness , guarding or rigidity, no organomegaly EXTREMITIES: Bilateral lower extremity with multiple skin deluca some areas of erythema and nodularity but no open wound or any drainage SKIN: No rash, multiple skin lesion as mentioned above to the lower extremity NEUROLOGICAL: The patient is awake, alert, oriented x3, mood and affect normal. Results CBC & Chem 7: 02/03/24 04:19 02/03/24 04:19 Labs: Abnormal Lab Results - Last 24 Hours (Table) 02/01/24 02/01/24 02/02/24 Range/Units 16:51 16:51 06:29 WBC 15.2 H 12.91 H (3.8-10.6) k/uL RBC 4.31 L (4.40-5.60) X 10*6/uL Hgb 12.7 L (13.0-17.0) g/dL Hct 39.1 L (39.6-50.0) % Immature Gran # 0.05 H (0.00-0.04) X 10*3/uL Neutrophils # 11.5 H 7.87 H (1.3-7.7) k/uL Monocytes # 1.24 H (0.20-1.00) X 10*3/uL ESR 46 H (0-15) mm/Hr Potassium 3.0 L (3.5-5.1) mmol/L BUN 8 L (9-20) mg/dL BUN/Creatinine Ratio (12.00-20.00) Ratio Glucose 145 H (74-99) mg/dL ALT 71 H (4-49) U/L Alkaline Phosphatase 132 H (38-126) U/L C-Reactive Protein 13.7 H (<1.0) mg/dL Total Protein 8.8 H (6.3-8.2) g/dL Albumin/Globulin Ratio (1.60-3.17) Ratio 02/02/24 Range/Units 06:29 WBC (3.8-10.6) k/uL RBC (4.40-5.60) X 10*6/uL Hgb (13.0-17.0) g/dL Hct (39.6-50.0) % Immature Gran # (0.00-0.04) X 10*3/uL Neutrophils # (1.3-7.7) k/uL Monocytes # (0.20-1.00) X 10*3/uL ESR (0-15) mm/Hr Potassium (3.5-5.1) mmol/L BUN 6.7 L (9-20) mg/dL BUN/Creatinine Ratio 9.57 L (12.00-20.00) Ratio Glucose 127 H (74-99) mg/dL ALT 52 H (4-49) U/L Alkaline Phosphatase (38-126) U/L C-Reactive Protein (<1.0) mg/dL Total Protein (6.3-8.2) g/dL Albumin/Globulin Ratio 1.23 L (1.60-3.17) Ratio Assessment and Plan (1) Bilateral lower leg cellulitis Current Visit: Yes Status: Acute Code(s): L03.116 - CELLULITIS OF LEFT LOWER LIMB; L03.115 - CELLULITIS OF RIGHT LOWER LIMB SNOMED Code(s): 697744232 (2) IV drug abuse Current Visit: Yes Status: Acute Code(s): F19.10 - OTHER PSYCHOACTIVE SUBSTANCE ABUSE, UNCOMPLICATED SNOMED Code(s): 144793299 (3) Leukocytosis Current Visit: Yes Status: Acute Code(s): D72.829 - ELEVATED WHITE BLOOD CELL COUNT, UNSPECIFIED SNOMED Code(s): 319688484 Plan: 1patient presented to hospital with generalized bodyaches fever not feeling well with a bilateral lower extremity multiple skin deluca erythema redness concerning for injection/cellulitis, endocarditis will be of concern however initial echocardiogram is negative. 2vancomycin pharmacy to dose target trough of 15 while watching kidney function and Vanco trough closely. 3if the blood cultures came back positive we will ask for KELLY to make sure no evidence of any endocarditis. We will follow on clinical condition and cultures to further adjust medication if needed Thank you for this consultation we will follow the patient along with you Dictation was produced using [employer] dictation software. please excuse any grammatical, word or spelling errors. Time with Patient: Greater than 30
[2024-02-03 08:02] LABS: C Reactive Protein 3.4 mg/dL (<1.0)
[2024-02-03] MEDS: ONDANSETRON 4 MG/2 ML VIAL IVP PRN (08:50)
[2024-02-03] MEDS ORDERED: LORazepam 2 MG/ML INJ IV PRN (09:38)
[2024-02-03] MEDS ORDERED: VANCOMYCIN TROUGH DUE 1 EACH MISC MISCELLANE ONE (10:00)
[2024-02-03] MEDS: LORazepam 2 MG/ML INJ IV STA (10:25)
[2024-02-03 10:42] LABS: African American GFR (CKD) >90 (>60 ml/min/1.73 sqM); Non-African American GFR(CKD) >90 (>60 ml/min/1.73 sqM)
--- NOTE | 2024-02-03 13:55 | P.DS ---
Providers Date of admission: 02/01/24 18:07 Attending physician: Espinoza Huerta Consults: 02/01/24 18:06 Consult Physician Routine Consulting Provider: Paolo Murguia Consult Reason/Comments: endocarditis Do you want consulting provider notified?: Yes Primary care physician: Stated None Hospital Course: Discharge diagnoses; # Cellulitis, bilateral lower extremity #Leukocytosis #Hypokalemia, resolved #Transaminitis secondary to hepatitis C # IV drug use Hospital course; History of present illness; Patient is a 43-year-old male with history of IV drug use including fentanyl and heroin, hepatitis C who presents with intermittent fever. Patient states he has had several days of fever and chills. He also states he has had some shortness of breath and bodyaches. He has no other pain and symptoms are non positional dependent. Continues to use IV fentanyl and is concerned about endocarditis. This morning he states he is feeling better and has absence of fever, chills, we ight loss, chest pain, palpitations, diaphoresis, dyspnea, cough, nausea, vomiting, constipation, diarrhea, abdominal pain, weakness, myalgia, dizziness, headache, and dysuria. EKG done in the ER with sinus arrhythmia heart rate of 84, no ST segment elevation or depression seen, no T-wave inversions seen. Chest x-ray no acute process. During hospital stay patient was found to have leukocytosis likely from left leg erythematous indurated lesion at previous IV drug injection site. He was treated with IV vancomycin 1500 mg every 8 hour and IV ceftriaxone 2 g daily. Echo found no evidence of vegetation EF 60 to 65% blood culture pending. ID was consulted and followed patient. Initial hypokalemia was treated with 80 mill equivalents of potassium. Patient also had transaminitis and stated he had referral for SUSIE Santos. Social work was consulted for IV drug use, fentanyl at this time. He does state desire to quit. He began to have withdrawals while inpatient. Patient left AGAINST MEDICAL ADVICE. Risks explained to patient. Final blood cultures remain pending, currently with no growth. Given 7-day course of Bactrim 2 pills twice daily. PHYSICAL EXAMINATION: Vitals reviewed GENERAL: No acute distress. Well developed, well nourished. HEENT: Pupils are round and equally reacting to light. EOMI. No scleral icterus. Normocephalic, atraumatic. CARDIOVASCULAR: S1 and S2 present. No murmurs, rubs, or gallops. PULMONARY: Chest is clear to auscultation, no wheezing, rhonchi, or crackles. ABDOMEN: Soft, nontender, nondistended, normoactive bowel sounds. No palpable organomegaly. MUSCULOSKELETAL: No apparent joint swelling and deformities. EXTREMITIES: No apparent cyanosis, clubbing, or pedal edema. NEUROLOGICAL: The patient is alert and oriented x3, Gross neurological examination did not reveal any focal deficits. 5/5 Strength bilateral UE and LE SKIN: Multiple round erythematous lesions in lower extremities. Indurated lesion on LLE. Dictation was produced using [employer] dictation software. please excuse any grammatical, word or spelling errors. Patient Condition at Discharge: Undetermined Plan - Discharge Summary New Discharge Prescriptions: New Sulfamethoxazole/Trimethoprim [Bactrim DS 800-160 mg] 2 each PO BID #28 tablet Discharge Medication List Sulfamethoxazole/Trimethoprim [Bactrim DS 800-160 mg] 2 each PO BID #28 tablet 02/03/24 [Rx] Follow up Appointment(s)/Referral(s): None,Stated [Primary Care Provider] - 1-2 days Discharge/Stand Alone Forms: AA Meetings [facility] - [facility], AA Meetings [place], Who Do I Call?, Community Resources, Outpatient Counseling, Inp Substance Abuse Facilities, Area PCPs Discharge Disposition: LEFT AGAINST MEDICAL ADVICE
--- NOTE | 2024-02-03 15:42 | P.PN ---
Subjective Progress Note Date: 02/03/24 Principal diagnosis: Reason for follow-up is leukocytosis left thigh abscess cellulitis IV drug use Patient is a 43-year-old male with a past medical history significant for IV drug use hepatitis C anxiety depression presenting to the hospital concerning for generalized bodyaches fever chills and night sweats and multiple lesions lower extremity concerning for abscess and question of possible endocarditis. On today's evaluation that is 02/03/2024, Patient is afebrile this morning patient denies having any chest pain shortness of breath or cough, the patient is currently on room air, patient denies any abdominal pain no diarrhea no nausea no vomiting mention feeling slightly better he did have a area of induration pain and swelling to the left anterior thigh area but no drainage. Patient white count normalized to 10.1, creatinine 0.63 white count of 19.3 blo od culture currently pending Objective - Vital Signs Vital signs: Vital Signs Temp 98.6 F 02/03/24 06:40 Pulse 85 02/03/24 06:40 Resp 16 02/03/24 06:40 BP 151/81 02/03/24 06:40 Pulse Ox 100 02/03/24 06:40 FiO2 Intake & Output 02/02/24 02/03/24 02/03/24 18:59 06:59 18:59 Intake Total 118 Balance 118 Weight 96.162 kg Intake: Oral 118 - Exam GENERAL DESCRIPTION: Middle-age male lying in bed in no distress RESPIRATORY SYSTEM: Unlabored breathing , decreased breath sounds at bases HEART: S1 S2 regular rate and rhythm , ABDOMEN: Soft , no tenderness EXTREMITIES: Left anterior thigh did have an area of fluctuation redness but no drainage - Labs CBC & Chem 7: 02/03/24 04:19 02/03/24 10:08 Labs: Abnormal Lab Results - Last 24 Hours (Table) 02/03/24 Range/Units 04:19 Chloride 109 H (98-107) mmol/L BUN 7 L (9-20) mg/dL Creatinine 0.63 L (0.66-1.25) mg/dL ALT 50 H (4-49) U/L C-Reactive Protein 3.4 H (<1.0) mg/dL Microbiology - Last 24 Hours (Table) 02/01/24 16:45 Blood Culture - Preliminary Blood Assessment and Plan (1) Bilateral lower leg cellulitis Status: Acute Code(s): L03.116 - CELLULITIS OF LEFT LOWER LIMB; L03.115 - CELLULITIS OF RIGHT LOWER LIMB SNOMED Code(s): 991362820 (2) IV drug abuse Status: Acute Code(s): F19.10 - OTHER PSYCHOACTIVE SUBSTANCE ABUSE, UNCOMPLICATED SNOMED Code(s): 437537846 (3) Leukocytosis Status: Acute Code(s): D72.829 - ELEVATED WHITE BLOOD CELL COUNT, UNSPECIFIED SNOMED Code(s): 031870774 Plan: 1patient presented to hospital with generalized bodyaches fever not feeling well with a bilateral lower extremity multiple skin deluca erythema redness concerning for injection/cellulitis, endocarditis will be of concern however initial echocardiogram is negative. 2patient did have an area of induration possible abscess to the left anterior thigh and may benefit from surgical drainage 3for now patient will be treated with the vancomycin while waiting for the workup to complete Dictation was produced using [employer] dictation software. please excuse any grammatical, word or spelling errors. Time with Patient: Less than 30
== END 2024-02-03 12:26 | disposition left against medical advice (07) ==
LOC: EC 15:05 → 4SSUR 18:06 → INTOOBSV 18:07 → OBSVTOIN 18:07 → 6NMEDSUR 19:13 → UNDODISIN 02-03 12:26
PROVIDERS: ADMIT Hospitalist; ATTEND Hospitalist
DX: L03.116 Cellulitis of left lower limb (principal); L03.115 Cellulitis of right lower limb; R06.00 Dyspnea, unspecified; E87.6 Hypokalemia; R74.01 Elevation of levels of liver transaminase levels; B18.2 Chronic viral hepatitis C; F41.9 Anxiety disorder, unspecified; F32.A Depression, unspecified; F17.200 Nicotine dependence, unspecified, uncomplicated; Z88.1 Allergy status to other antibiotic agents; Z88.5 Allergy status to narcotic agent; Z53.29 Procedure and treatment not carried out because of patient's decision for other reasons
CPT/HCPCS: 96376 ×2; 96365 ×2; 96366 ×4; 96372 ×2; 96375 ×2; 96367; 99285; 36415; 93005; 93306; 80053 ×3; 85652; 82565; 83605; 83735 ×2; 84100 ×2; 84484; 85025 ×3; 80202; 86140 ×2; 87040; 87636; 71046; G0378 ×3; J3370 ×3; J2060; J2270 ×3; J2405; J0696 ×3; J1650 ×2; J2470 ×3